=== PATIENT | male | born 1945 | race Caucasian/White ===

== ENCOUNTER 2017-09-29 06:57 | Day surgery (SDC) | payer MEDICARE, BC ==
[~2017-09-29 06:57] MED LIST: ACETAMINOPHEN 1,000 MG/100 ML BTL IV ONE; CLINDAMYCIN 600MG/50ML PREMIX 600 MG/50 ML BAG IVPB ONE
[2017-09-29] MEDS ORDERED: CLINDAMYCIN PHOS/D5W 900MG 900 MG/50 ML BAG IVPB ONE (06:58)
[2017-09-29] MEDS ORDERED: PROPOFOL 10 MG/ML VIAL IV ONE (06:58)
[2017-09-29] MEDS ORDERED: LIDOCAINE 2% MDV (20MG/ML) 20ML VIAL IV ONE (06:58)
[2017-09-29] MEDS ORDERED: ROPIVACAINE HCL (NAROPIN) /PF 5MG/ML 20ML VIAL IV ONE (06:58)
[2017-09-29] MEDS ORDERED: SUCCINYLCHOLINE 20 MG/ML 10ML IVP ONE (06:58)
[2017-09-29] MEDS ORDERED: MIDAZOLAM HCL 2MG/2ML VIAL IV ONE (06:58)
[2017-09-29] MEDS ORDERED: ONDANSETRON HCL IV 4 MG/2 ML VIAL IVP ONE (06:58)
[2017-09-29] MEDS ORDERED: BUPIVACAINE 0.5% W/EPI MPF 30 ML VIAL IVP ONE (06:58)
[2017-09-29] MEDS ORDERED: KETOROLAC 30 MG/ML VIAL IVP ONE (06:58)
[2017-09-29] MEDS ORDERED: SEVOFLURANE 250 ML INH ONE (06:58)
[2017-09-29] MEDS ORDERED: EPHEDRINE SULFATE 50 MG/ML ML IV ONE (06:58)
[2017-09-29] MEDS ORDERED: DEXAMETHASONE 4 MG/ML 1ML VIAL IVP ONE (06:58)
[2017-09-29] MEDS ORDERED: FENTANYL PF 100MCG/2ML VIAL IV ONE (06:58)
[2017-09-29] MEDS ORDERED: ROCURONIUM BROMIDE 50MG/5ML VIAL IV ONE (06:58)
[2017-09-29] MEDS ORDERED: MORPHINE SULFATE PF 10MG/10ML VIAL IV ONE (06:58)
[2017-09-29 07:28] LABS: BLOOD UREA NITROGEN 16 mg/dL (8-23); CREATININE 0.9 mg/dL (0.7-1.2); EST GLOMERULAR FILTRATION RATE > 60 mL/min; GLUCOSE,RANDOM 108 mg/dL (74-109)
--- NOTE | 2017-09-30 15:17 | Operative Note ---
DATE OF SURGERY: 09/29/2017 PREOPERATIVE DIAGNOSIS: TEAR OF THE ROTATOR CUFF ON THE RIGHT WITH IMPINGEMENT. POSTOPERATIVE DIAGNOSES: 1. 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 2. PROFOUND EXTERNAL IMPINGEMENT, RIGHT SHOULDER. 3. DIFFUSE SYNOVITIS, RIGHT SHOULDER, WITH A SMALL SUPERIOR GLENOHUMERAL LABRAL TEAR. 4. ADVANCED ARTHROSIS, RIGHT DISTAL CLAVICLE. PROCEDURE: 1. OPEN REPAIR OF A CHRONICALLY TORN RIGHT ROTATOR CUFF TEAR. 2. RIGHT SHOULDER ARTHROSCOPY WITH SYNOVECTOMY COMPLETE AND DEBRIDEMENT OF THE SUPERIOR LABRUM. 3. RIGHT SHOULDER OPEN ACROMIOPLASTY. CA LIGAMENT RESECTION SUBACROMIAL BURSECTOMY. 4. RIGHT SHOULDER DISTAL CLAVICLE RESECTION. STAFF SURGEON: PETRA MEDINA M.D. ANESTHESIA: GENERAL. PREPARATION: CHLORAPREP. INDIVIDUAL CONSIDERATIONS: NONE. PROCEDURE: The patient was taken to the Operating Room and placed supine on the operating table. He had a successful induction of a general anesthetic. He was then placed in a semi-seated beach chair position and his right arm and shoulder were prepped and draped in the usual fashion. The patient had examination under anesthesia, which showed no instability. He had a posterior portal identified for arthroscopy and the skin was infiltrated with 0.50% Marcaine with Epinephrine prior. An 18-gauge spinal needle was placed in the joint and the joint was inflated with normal saline with a 60 mL syringe. A stab wound was made and a blunt-tipped trocar arthroscope was placed in the joint and the joint was inflated with normal saline. An anterior accessory portal was then made just inferior to the intact long head of the biceps tendon in a retrograde fashion with a Wissinger gabriella and the joint was irrigated out. The patient had synovitis especially underneath the long head and near the subscap and in a pouch; this was all debrided out. He had what appeared to be a partial tear of the subscap, which was debrided. A small labral tear, an unstable at least partial tear that I could see underneath the rotator cuff of the supraspinatus, which was debrided. The glenohumeral joint was otherwise normal. The joint was irrigated out and portals were closed with denilson. The patient had an anterior approach to the subacromial space and distal clavicle. The skin was again infiltrated with 0.50% Marcaine with Epinephrine prior. An anterior deltoid interval was identified and care was taken not to split the deltoid more than about 4 cm distal to the anterior tip of the acromion to prevent injury to the axillary nerve. Once in the subacromial space , there was a large song of clear fluid consistent with a tear. The deltoid was then taken subperiosteally off the anterior aspect of the acromion, which was downsloping over the top of the intact CA ligament, off the anterior aspect of the degenerated distal clavicle. CA ligament was resected with a Bovie. Distal clavicle was resected with an oscillating saw. An anterior acromioplasty was then performed taking about 7 or 8 mm tapering to wedge posteromedially to include the spurs at the AC joint. The undersurface was smoothed with a rasp. The patient had a large thickened bursa, which was debrided and now had a good look at the rotator cuff. The supraspinatus looked as though it had been beaten with a meat tenderizing hammer, areas of maceration, and there was about a 2 mm tear distally. It was a very thin surrounding. I resected it back to good bleeding tendon and creating a defect at a little over a centimeter. I then used a bur at the tuberosity to freshen up the bone and create a small trough. I placed retention sutures with #1 Ethibond through the end of the tendon and sutured it down into the trough through holes and tied down distally on the humeral head. This essentially effected an anatomic repair. I put the shoulder through full range of motion to ensure no further impingement. After irrigation , I reattached the deltoid with multiple interrupted #2 Vicryl going directly through the bony acromion. The periosteal cuff and distal clavicle were closed with running #2 Vicryl, anterior deltoid interval was closed with a running #1 Vicryl. The subcut was closed with 2-0 plus Vicryl, and skin was closed with denilson. About 15 mL of 0.50% Marcaine with Epinephrine along with 10 mg of Morphine were injected in the subacromial space through a sterile #18-gauge needle and a sterile Bulkee compressive dressing and sling were applied. The patient tolerated the procedures well. Needle and sponge counts were correct. Estimated blood loss was minimal and he was taken back to Recovery in good condition. There were no complications. JOB NUMBER: [id number] [facility]
== END 2017-09-29 12:05 | disposition home or self-care (01) ==
LOC: SUR 06:57
PROVIDERS: ATTEND Orthopaedic Surgery
DX: M75.101 Unspecified rotator cuff tear or rupture of right shoulder, not specified as traumatic (principal); M75.41 Impingement syndrome of right shoulder; M65.811 Other synovitis and tenosynovitis, right shoulder; M19.011 Primary osteoarthritis, right shoulder; I10 Essential (primary) hypertension; E11.9 Type 2 diabetes mellitus without complications; Z79.4 Long term (current) use of insulin; E78.00 Pure hypercholesterolemia, unspecified
CPT/HCPCS: 23412; 29821; 23415; 23120; 01630; 80048; 36416; 82948; J1885; J2405; J3010; J2795; J3490; J0330